=== PATIENT | male | born 1990 | race American Indian/Alaskan Native ===

== ENCOUNTER 2022-04-17 09:57 | Emergency (ER) | payer SELFPAY ==
[2022-04-17] MEDS ORDERED: HYDROcodone/ACETAMINOPHEN 10-325MG TAB PO ONE (13:32)
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
[2022-04-17 15:02] VITALS: BP 95/60
== END 2022-04-17 15:02 | disposition home or self-care (01) ==
LOC: ED 09:57
DX: S59.912A Unspecified injury of left forearm, initial encounter (principal); S59.911A Unspecified injury of right forearm, initial encounter; V89.2XXA Person injured in unspecified motor-vehicle accident, traffic, initial encounter; Y93.89 Activity, other specified; Y92.89 Other specified places as the place of occurrence of the external cause; Y99.8 Other external cause status
CPT/HCPCS: 99283